=== PATIENT | male | born 1995 | race Caucasian/White ===

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

== ENCOUNTER → 2017-12-27 | Outpatient (REF) | payer BC ==
[2017-12-27 13:25] LABS: BASO # 0.1 10^3/uL (0.0-0.2); BASO % 0.6 % (0.0-1.0); EOS # 0.3 10^3/uL (0.0-0.50); EOS % 2.5 % (0.0-3.0); HEMATOCRIT 45.2 % (42.0-52.0); HEMOGLOBIN 14.4 g/dl (14.0-18.0); IMMATURE GRANULOCYTE % 0.4 % (0-3.0); LYMPH % 25.8 % (24.0-44.0); MEAN CORPUSCULAR HEMOGLOBIN 28.2 pg (27.0-33.0); MEAN CORPUSCULAR HGB CONC 31.9 g/dl (32.0-36.5); MEAN CORPUSCULAR VOLUME 88.6 fl (80.0-96.0); MONO # 0.8 10^3/uL (0.0-0.8); NEUTROPHILS # 7.3 10^3/uL (1.8-7.7); NEUTROPHILS % 63.7 % (36.0-66.0); PLATELET COUNT, AUTOMATED 355 10^3/uL (150-450); RED CELL DISTRIBUTION WIDTH 12.9 % (11.5-14.5); WHITE BLOOD COUNT 11.5 10^3/uL (4.0-10.0)
[2017-12-27 13:31] LABS: ALBUMIN 3.9 GM/DL (3.2-5.2); ALBUMIN/GLOBULIN RATIO 1.08 (1.00-1.93); ALKALINE PHOSPHATASE 128 U/L (45-117); ALT/SGPT 52 U/L (12-78); ANION GAP 7 MEQ/L (8-16); AST/SGOT 21 U/L (7-37); BILIRUBIN,TOTAL 0.3 MG/DL (0.2-1.0); BLOOD UREA NITROGEN 8 MG/DL (7-18); CALCIUM LEVEL 8.9 MG/DL (8.5-10.1); CARBON DIOXIDE LEVEL 27 MEQ/L (21-32); CHLORIDE LEVEL 106 MEQ/L (98-107); CHOLESTEROL LEVEL 151 MG/DL (<200); CHOLESTEROL RISK RATIO 5.392 (<5); FREE T3 3.1 PG/ML (2.9-4.5); GLUCOSE, FASTING 110 MG/DL (70-100); HDL CHOLESTEROL 28 MG/DL (>40); LDL CHOLESTEROL 66.4 MG/DL (<100); NON-HDL-C 123 MG/DL; POTASSIUM SERUM 4.2 MEQ/L (3.5-5.1); SODIUM LEVEL 140 MEQ/L (136-145); THYROXINE (T4) 10.2 UG/DL (6.0-11.6); TOTAL PROTEIN 7.5 GM/DL (6.4-8.2); TRIGLYCERIDES LEVEL 283 MG/DL (<150)
[2017-12-27 13:32] LABS: LITHIUM LEVEL 0.67 MEQ/L (0.60-1.20)
== END ==
LOC: M LABDRAWC 07:50
DX: F31.9 Bipolar disorder, unspecified (principal)

== ENCOUNTER → 2018-05-26 | Outpatient (REF) | payer BC, MEDICAID ==
[2018-05-26 13:17] LABS: ALBUMIN 3.7 GM/DL (3.2-5.2); ANION GAP 6 MEQ/L (8-16); BLOOD UREA NITROGEN 8 MG/DL (7-18); CALCIUM LEVEL 8.9 MG/DL (8.5-10.1); CARBON DIOXIDE LEVEL 30 MEQ/L (21-32); CHLORIDE LEVEL 104 MEQ/L (98-107); CREATININE FOR GFR 1.09 MG/DL (0.70-1.30); FREE T3 2.9 PG/ML (2.9-4.5); GLUCOSE, FASTING 100 MG/DL (70-100); PHOSPHORUS LEVEL 4.2 MG/DL (2.5-4.9); POTASSIUM SERUM 4.2 MEQ/L (3.5-5.1); SODIUM LEVEL 140 MEQ/L (136-145); THYROXINE (T4) 9.9 UG/DL (6.0-11.6)
[2018-05-26 13:19] LABS: LITHIUM LEVEL 0.79 MEQ/L (0.60-1.20)
== END ==
LOC: M LABDRAWC 12:24
DX: Z79.899 Other long term (current) drug therapy (principal)
CPT/HCPCS: 80178

== ENCOUNTER → 2018-09-30 | Outpatient (REF) | payer BC, MEDICAID ==
[2018-09-30 12:22] LABS: FREE T3 3.1 PG/ML (2.2-4.0); FREE T4 0.86 NG/DL (0.76-1.46)
== END ==
LOC: M SFHCCLAY 07:07
DX: R79.89 Other specified abnormal findings of blood chemistry (principal)
CPT/HCPCS: 84443

== ENCOUNTER → 2018-12-30 | Outpatient (REF) | payer BC, MEDICAID ==
[2018-12-30 16:57] LABS: FREE T4 0.9 NG/DL (0.76-1.46); THYROID STIMULATING HORMONE 2.43 uIU/ML (0.358-3.740)
== END ==
LOC: M SFHCCLAY 13:51
PROVIDERS: ATTEND Family Medicine
DX: R79.89 Other specified abnormal findings of blood chemistry (principal)

== ENCOUNTER → 2019-04-03 | Outpatient (REF) | payer BC, MEDICAID ==
[2019-04-03 11:58] LABS: HEMOGLOBIN 14.5 g/dl (13.5-17.5); MEAN CORPUSCULAR HEMOGLOBIN 28.9 pg (27.0-33.0); MEAN CORPUSCULAR HGB CONC 31.5 g/dl (32.0-36.5); MEAN CORPUSCULAR VOLUME 91.6 fl (80.0-96.0); PLATELET COUNT, AUTOMATED 351 10^3/uL (150-450); RED BLOOD COUNT 5.02 10^6/uL (4.30-6.10); WHITE BLOOD COUNT 12.2 10^3/uL (4.0-10.0)
[2019-04-03 12:31] LABS: BLOOD UREA NITROGEN 9 MG/DL (7-18); CALCIUM LEVEL 9.3 MG/DL (8.5-10.1); CARBON DIOXIDE LEVEL 29 MEQ/L (21-32); CHLORIDE LEVEL 104 MEQ/L (98-107); CREATININE FOR GFR 0.97 MG/DL (0.70-1.30); GLOMERULAR FILTRATION RATE > 60.0 (>60); GLUCOSE, FASTING 102 MG/DL (70-100); LITHIUM LEVEL 0.87 MEQ/L (0.60-1.20); POTASSIUM SERUM 4.1 MEQ/L (3.5-5.1); SODIUM LEVEL 140 MEQ/L (136-145)
== END ==
LOC: M SFHCCLAY 06:45
PROVIDERS: ATTEND Family Medicine
DX: J45.30 Mild persistent asthma, uncomplicated (principal); E03.9 Hypothyroidism, unspecified; Z01.818 Encounter for other preprocedural examination

== ENCOUNTER → 2020-04-22 | Outpatient (REF) | payer BC, MEDICAID ==
[2020-04-22 12:33] LABS: ALBUMIN 3.6 GM/DL (3.2-5.2); BLOOD UREA NITROGEN 6 MG/DL (7-18); CARBON DIOXIDE LEVEL 29 MEQ/L (21-32); CHLORIDE LEVEL 108 MEQ/L (98-107); CREATININE FOR GFR 0.99 MG/DL (0.70-1.30); FREE T3 3.2 PG/ML (2.2-4.0); GLOMERULAR FILTRATION RATE > 60.0 (>60); GLUCOSE, FASTING 103 MG/DL (70-100); LITHIUM LEVEL 0.72 MEQ/L (0.60-1.20); POTASSIUM SERUM 4.3 MEQ/L (3.5-5.1); SODIUM LEVEL 142 MEQ/L (136-145); THYROXINE (T4) 9.9 UG/DL (4.5-12.0)
== END ==
LOC: M LABDRAWC 11:17
PROVIDERS: ATTEND Anesthesiology Pain Medicine
DX: Z79.899 Other long term (current) drug therapy (principal)

== ENCOUNTER → 2020-09-30 | Outpatient (REF) | payer BC, MEDICAID ==
[2020-09-30 12:14] LABS: ALBUMIN 3.7 GM/DL (3.2-5.2); BLOOD UREA NITROGEN 8 MG/DL (7-18); CALCIUM LEVEL 9.3 MG/DL (8.5-10.1); CARBON DIOXIDE LEVEL 27 MEQ/L (21-32); CHLORIDE LEVEL 107 MEQ/L (98-107); FREE T3 2.9 PG/ML (2.2-4.0); GLOMERULAR FILTRATION RATE > 60.0 (>60); GLUCOSE, FASTING 96 MG/DL (70-100); LITHIUM LEVEL 0.68 MEQ/L (0.60-1.20); PHOSPHORUS LEVEL 4.1 MG/DL (2.5-4.9); POTASSIUM SERUM 3.9 MEQ/L (3.5-5.1); SODIUM LEVEL 140 MEQ/L (136-145); THYROXINE (T4) 9.4 UG/DL (4.5-12.0)
== END ==
LOC: M LABDRAWC 11:02
PROVIDERS: ATTEND Anesthesiology Pain Medicine
DX: F31.9 Bipolar disorder, unspecified (principal)

== ENCOUNTER → 2021-03-06 | Outpatient (REF) | payer BC, MEDICAID ==
[2021-03-06 13:28] LABS: ALBUMIN 3.8 GM/DL (3.2-5.2); BLOOD UREA NITROGEN 8 MG/DL (7-18); CALCIUM LEVEL 9.2 MG/DL (8.5-10.1); CARBON DIOXIDE LEVEL 28 MEQ/L (21-32); CHLORIDE LEVEL 105 MEQ/L (98-107); FREE T3 3.2 PG/ML (2.2-4.0); GLOMERULAR FILTRATION RATE > 60.0 (>60); GLUCOSE, FASTING 97 MG/DL (70-100); LITHIUM LEVEL 0.68 MEQ/L (0.60-1.20); PHOSPHORUS LEVEL 3.9 MG/DL (2.5-4.9); POTASSIUM SERUM 4.2 MEQ/L (3.5-5.1); SODIUM LEVEL 139 MEQ/L (136-145); THYROXINE (T4) 7.9 UG/DL (4.5-12.0)
== END ==
LOC: M LABDRWAD 11:48
PROVIDERS: ATTEND Anesthesiology Pain Medicine
DX: F31.9 Bipolar disorder, unspecified (principal)

== ENCOUNTER → 2021-04-18 | Outpatient (REF) | payer BC, MEDICAID | LOC: M SFHCCLAY 15:05 | PROVIDERS: ATTEND Family Medicine | DX: L92.9 Granulomatous disorder of the skin and subcutaneous tissue, unspecified (principal) ==

== ENCOUNTER → 2021-08-14 | Outpatient (REF) | payer BC, MEDICAID | LOC: M LAB REF 15:43 | PROVIDERS: ATTEND Surgery | DX: D23.62 Other benign neoplasm of skin of left upper limb, including shoulder (principal) ==

== ENCOUNTER → 2021-09-16 | Outpatient (REF) | payer BC, MEDICAID | LOC: M SFHCCLAY 16:53 | PROVIDERS: ATTEND Family Medicine | DX: L08.9 Local infection of the skin and subcutaneous tissue, unspecified (principal) ==

== ENCOUNTER → 2021-10-06 | Outpatient (REF) | payer BC, MEDICAID ==
[2021-10-06 16:07] LABS: BASO # 0.1 10^3/uL (0.0-0.2); BASO % 0.7 % (0.0-1.0); EOS # 0.4 10^3/uL (0.0-0.5); EOS % 3.2 % (0.0-3.0); HEMATOCRIT 44.2 % (42.0-52.0); HEMOGLOBIN 14.1 g/dl (13.5-17.5); LYMPH # 2.9 10^3/uL (1.5-5.0); LYMPH % 24.3 % (24.0-44.0); MEAN CORPUSCULAR HEMOGLOBIN 27.5 pg (27.0-33.0); MEAN CORPUSCULAR HGB CONC 31.9 g/dl (32.0-36.5); MEAN CORPUSCULAR VOLUME 86.2 fl (80.0-96.0); MONO # 0.8 10^3/uL (0.0-0.8); NEUTROPHILS # 7.7 10^3/uL (1.5-8.5); NEUTROPHILS % 64.4 % (36.0-66.0); PLATELET COUNT, AUTOMATED 365 10^3/uL (150-450); RED BLOOD COUNT 5.13 10^6/uL (4.30-6.10); WHITE BLOOD COUNT 11.9 10^3/uL (4.0-10.0)
[2021-10-06 16:41] LABS: ALBUMIN 3.8 GM/DL (3.2-5.2); ALT/SGPT 54 U/L (12-78); BILIRUBIN,TOTAL 0.2 MG/DL (0.2-1.0); BLOOD UREA NITROGEN 7 MG/DL (7-18); CALCIUM LEVEL 9.7 MG/DL (8.5-10.1); CARBON DIOXIDE LEVEL 28 MEQ/L (21-32); CHLORIDE LEVEL 106 MEQ/L (98-107); CREATININE FOR GFR 0.98 MG/DL (0.70-1.30); FREE T4 1.01 NG/DL (0.76-1.46); GLOMERULAR FILTRATION RATE > 60.0 (>60); GLUCOSE, FASTING 92 MG/DL (70-100); LITHIUM LEVEL 0.59 MEQ/L (0.60-1.20); POTASSIUM SERUM 4.5 MEQ/L (3.5-5.1); SODIUM LEVEL 139 MEQ/L (136-145); TOTAL PROTEIN 7.5 GM/DL (6.4-8.2)
== END ==
LOC: M SFHCCLAY 10:19
PROVIDERS: ATTEND Physician Assistant
DX: R10.9 Unspecified abdominal pain (principal); Z79.899 Other long term (current) drug therapy; E03.9 Hypothyroidism, unspecified; H61.21 Impacted cerumen, right ear

== ENCOUNTER → 2022-02-13 | Outpatient (REF) | payer BC, MEDICAID ==
[2022-02-13 12:36] LABS: ALBUMIN 3.7 GM/DL (3.2-5.2); BLOOD UREA NITROGEN 10 MG/DL (7-18); CALCIUM LEVEL 9.2 MG/DL (8.5-10.1); CARBON DIOXIDE LEVEL 29 MEQ/L (21-32); CHLORIDE LEVEL 109 MEQ/L (98-107); CHOLESTEROL LEVEL 175 MG/DL (<200); CHOLESTEROL RISK RATIO 6.481 (<5); CREATININE FOR GFR 1.01 MG/DL (0.70-1.30); GLOMERULAR FILTRATION RATE > 60.0 (>60); GLUCOSE, FASTING 111 MG/DL (70-100); HDL CHOLESTEROL 27 MG/DL (>40); LDL CHOLESTEROL 78 MG/DL (<100); LITHIUM LEVEL 0.74 MEQ/L (0.60-1.20); NON-HDL-C 148 MG/DL; PHOSPHORUS LEVEL 4.1 MG/DL (2.5-4.9); POTASSIUM SERUM 4.2 MEQ/L (3.5-5.1); SODIUM LEVEL 142 MEQ/L (136-145); THYROXINE (T4) 9.4 UG/DL (4.5-12.0); TRIGLYCERIDES LEVEL 348 MG/DL (<150)
== END ==
LOC: M LABDRAWC 11:18
PROVIDERS: ATTEND Anesthesiology Pain Medicine
DX: Z79.899 Other long term (current) drug therapy (principal)

== ENCOUNTER → 2022-09-07 | Outpatient (REF) | payer BC, MEDICAID ==
[2022-09-07 12:21] LABS: HEMOGLOBIN A1c 5.1 %
[2022-09-07 12:39] LABS: CHOLESTEROL RISK RATIO 5.5 (<5); FREE T4 1.08 NG/DL (0.76-1.46); THYROID STIMULATING HORMONE 1.12 uIU/ML (0.358-3.740)
== END ==
LOC: M SFHCCLAY 07:07
PROVIDERS: ATTEND Family Medicine
DX: E78.2 Mixed hyperlipidemia (principal); E03.9 Hypothyroidism, unspecified; E88.81 Metabolic syndrome and other insulin resistance

== ENCOUNTER → 2022-09-07 | Outpatient (REF) | payer BC, MEDICAID ==
[2022-09-07 13:28] LABS: ALBUMIN 3.9 GM/DL (3.2-5.2); ALT/SGPT 76 U/L (12-78); BILIRUBIN,TOTAL 0.2 MG/DL (0.2-1.0); BLOOD UREA NITROGEN 15 MG/DL (7-18); CALCIUM LEVEL 9.6 MG/DL (8.5-10.1); CARBON DIOXIDE LEVEL 26 MEQ/L (21-32); CHLORIDE LEVEL 107 MEQ/L (98-107); CHOLESTEROL LEVEL 152 MG/DL (<200); CHOLESTEROL RISK RATIO 5.629 (<5); CREATININE FOR GFR 0.93 MG/DL (0.70-1.30); FREE T3 3.2 PG/ML (2.2-4.0); GLOMERULAR FILTRATION RATE > 60.0 (>60); GLUCOSE, FASTING 100 MG/DL (70-100); HDL CHOLESTEROL 27 MG/DL (>40); LDL CHOLESTEROL 86 MG/DL (<100); LITHIUM LEVEL 0.72 MEQ/L (0.60-1.20); NON-HDL-C 125 MG/DL; PHOSPHORUS LEVEL 4.5 MG/DL (2.5-4.9); POTASSIUM SERUM 4.4 MEQ/L (3.5-5.1); SODIUM LEVEL 138 MEQ/L (136-145); THYROXINE (T4) 10.6 UG/DL (4.5-12.0); TOTAL PROTEIN 7.8 GM/DL (6.4-8.2); TRIGLYCERIDES LEVEL 197 MG/DL (<150)
== END ==
LOC: M LABDRAWC 11:59
PROVIDERS: ATTEND Anesthesiology Pain Medicine
DX: Z79.899 Other long term (current) drug therapy (principal)

== ENCOUNTER → 2024-08-04 | Outpatient (REF) | payer BC, MEDICAID ==
[2024-08-04 12:21] LABS: ALBUMIN 3.9 G/DL (3.2-5.2); ALKALINE PHOSPHATASE 124 U/L (46-116); ALT/SGPT 46 U/L (7.0-40); AST/SGOT 15 U/L (<34); BILIRUBIN,TOTAL 0.2 MG/DL (0.3-1.2); BLOOD UREA NITROGEN 14 MG/DL (9-23); CARBON DIOXIDE LEVEL 26 MMOL/L (20-31); CHLORIDE LEVEL 108 MMOL/L (98-107); CREATININE FOR GFR 0.88 MG/DL (0.70-1.30); GLOMERULAR FILTRATION RATE > 60.0 (>60); GLUCOSE, FASTING 98 MG/DL (60-100); LITHIUM LEVEL 0.91 MMOL/L (1.0-1.20); POTASSIUM SERUM 4.4 MMOL/L (3.5-5.1); SODIUM LEVEL 137 MMOL/L (136-145); THYROID STIMULATING HORMONE 4.718 uIU/ML (0.55-4.78); TOTAL PROTEIN 7.5 G/DL (5.7-8.2)
[2024-08-04 12:23] LABS: FREE T3 3.5 PG/ML (2.3-4.2)
== END ==
LOC: M LABDRAWC 11:07
PROVIDERS: ATTEND Anesthesiology Pain Medicine
DX: F31.9 Bipolar disorder, unspecified (principal)

== ENCOUNTER → 2024-10-16 | Outpatient (REF) | payer BC, MEDICAID ==
[2024-10-16 19:46] LABS: BASO # 0.1 10^3/uL (0.0-0.2); EOS # 0.4 10^3/uL (0.0-0.5); EOS % 4.7 % (0.0-3.0); HEMATOCRIT 43.2 % (42.0-52.0); HEMOGLOBIN 13.6 g/dl (13.5-17.5); LYMPH # 1.8 10^3/uL (1.5-5.0); LYMPH % 23.3 % (24.0-44.0); MEAN CORPUSCULAR HEMOGLOBIN 27.7 pg (27.0-33.0); MEAN CORPUSCULAR HGB CONC 31.5 g/dl (32.0-36.5); MONO # 0.6 10^3/uL (0.0-0.8); MONO % 7.3 % (2.0-8.0); NEUTROPHILS # 4.8 10^3/uL (1.5-8.5); NEUTROPHILS % 63.3 % (36.0-66.0); PLATELET COUNT, AUTOMATED 269 10^3/uL (150-450); RED BLOOD COUNT 4.91 10^6/uL (4.30-6.10); WHITE BLOOD COUNT 7.6 10^3/uL (4.0-10.0)
[2024-10-16 19:55] LABS: HEMOGLOBIN A1c 5.1 % (4.0-6.0)
[2024-10-16 20:03] LABS: ALBUMIN 3.9 G/DL (3.2-5.2); ALKALINE PHOSPHATASE 106 U/L (40-129); ALT/SGPT 43 U/L (7.0-40); AST/SGOT 17 U/L (<34); BILIRUBIN,TOTAL 0.3 MG/DL (0.3-1.2); BLOOD UREA NITROGEN 13 MG/DL (9-23); CALCIUM LEVEL 9.8 MG/DL (8.5-10.1); CARBON DIOXIDE LEVEL 27 MMOL/L (20-31); CHLORIDE LEVEL 106 MMOL/L (98-107); CREATININE FOR GFR 1.05 MG/DL (0.70-1.30); GLOMERULAR FILTRATION RATE > 60.0 (>60); GLUCOSE, FASTING 107 MG/DL (60-100); POTASSIUM SERUM 4.4 MMOL/L (3.5-5.1); SODIUM LEVEL 136 MMOL/L (136-145); TOTAL PROTEIN 7.5 G/DL (5.7-8.2)
[2024-10-16 20:06] LABS: FREE T4 1.22 NG/DL (0.89-1.76); THYROID STIMULATING HORMONE 1.147 uIU/ML (0.55-4.78)
== END ==
LOC: M SFHCCLAY 10:04
PROVIDERS: ATTEND Family Medicine
DX: Z79.899 Other long term (current) drug therapy (principal); E78.2 Mixed hyperlipidemia; E03.9 Hypothyroidism, unspecified

== ENCOUNTER → 2025-07-23 | Outpatient (REF) | payer BC, MEDICAID | LOC: M SFHCCLAY 17:21 | PROVIDERS: ATTEND Physician Assistant | DX: H66.93 Otitis media, unspecified, bilateral (principal) ==

== ENCOUNTER → 2025-08-02 | Outpatient (REF) | payer BC, MEDICAID ==
[2025-08-02 20:47] LABS: ALT/SGPT 38 U/L (7.0-40); AST/SGOT 23 U/L (<34); CALCIUM LEVEL 9.2 MG/DL (8.5-10.1); CARBON DIOXIDE LEVEL 25 MMOL/L (20-31); CHLORIDE LEVEL 107 MMOL/L (98-107); CHOLESTEROL LEVEL 143 MG/DL (<200); CHOLESTEROL RISK RATIO 3.81 (<5); CREATININE FOR GFR 0.81 MG/DL (0.70-1.30); GLOMERULAR FILTRATION RATE > 90.0 (>60); LDL CHOLESTEROL 55.1 MG/DL (<100); NON-HDL-C 105.5 MG/DL; POTASSIUM SERUM 4.3 MMOL/L (3.5-5.1); SODIUM LEVEL 138 MMOL/L (136-145); TRIGLYCERIDES LEVEL 252 MG/DL (<150)
[2025-08-02 20:49] LABS: FREE T4 1.20 NG/DL (0.89-1.76)
[2025-08-02 21:06] LABS: ESTIMATED AVERAGE GLUCOSE 108.0 MG/DL (60-110)
== END ==
LOC: M SFHCCLAY 13:02
PROVIDERS: ATTEND Nurse Practitioner Family
DX: E03.9 Hypothyroidism, unspecified (principal); J30.9 Allergic rhinitis, unspecified; K21.9 Gastro-esophageal reflux disease without esophagitis; J32.9 Chronic sinusitis, unspecified; E78.2 Mixed hyperlipidemia; L73.2 Hidradenitis suppurativa; F31.9 Bipolar disorder, unspecified

== ENCOUNTER → 2025-08-02 | Outpatient (REF) | payer BC, MEDICAID ==
[2025-08-02 21:05] LABS: CREATININE FOR GFR 0.82 MG/DL (0.70-1.30); GLOMERULAR FILTRATION RATE > 90.0 (>60)
[2025-08-02 22:36] LABS: LITHIUM LEVEL 1.39 MMOL/L (1.0-1.20)
== END ==
LOC: M LAB REF 20:35
PROVIDERS: ATTEND Psychiatry & Neurology Psychiatry
DX: F42.9 Obsessive-compulsive disorder, unspecified (principal)